=== PATIENT | male | born 1995 | race Caucasian/White ===

== ENCOUNTER 2019-12-11 17:34 | Emergency (ER) | payer OTHER ==
--- NOTE | 2019-12-11 17:41 | PDOC ---
Rapid Medical Evaluation Chief Complaint: Chest Pain Time Seen by Provider: 12/11/19 17:36 Medical Evaluation: 12/11/19 17:36 I have performed a brief in-person evaluation of this patient. CC: seizures x2 over 2 days. Not on meds. seen at OSH for same. Referred by PMD for evaluation of depression. Last ETOH/cocaine/THC 1 month ago. PE: Slow to respond to questions. Denies AH/VH/HI/SI/PI. Orders: defer to ED provider Patient will proceed to ED for further evaluation. Discharge Disposition - Diagnosis Seizure - Referrals - Patient Instructions - Post Discharge Activity
[2019-12-11 17:42] VITALS: BP 143/75; PULSE 69; TEMP 98; BMI 26.6
--- NOTE | 2019-12-11 18:28 | PDOC ---
History of Present Illness - General Chief Complaint: Chest Pain Stated Complaint: CHEST PAIN Time Seen by Provider: 12/11/19 17:36 History Source: Patient, Parent(s) - History of Present Illness Timing/Duration: other Past History - Medical History Allergies/Adverse Reactions: Allergies Allergy/AdvReac Type Severity Reaction Status Date / Time No Known Allergies Allergy Verified 12/11/19 17:42 Asthma: Yes COPD: No Seizures: Yes - Psycho-Social/Smoking History Smoking History: Never smoked - Substance Abuse Hx (Audit-C & DAST Scrn) In the last yr the pt used illegal drug/Rx for NonMed reason: Yes Score: Yes response is considered Positive: 1 Screen Result (Positive result requires Nsg. DAST-10): Positive Review of Systems - Review of Systems Constitutional: No: Chills, Fever Respiratory: Yes: Shortness of Breath Cardiac (ROS): Yes: Chest Pain Psychiatric: Yes: Depression *Physical Exam - Vital Signs Last Vital Signs Temp Pulse Resp BP Pulse Ox 98 F 69 18 143/75 99 12/11/19 17:36 12/11/19 17:36 12/11/19 17:36 12/11/19 17:36 12/11/19 17:36 - Physical Exam General Appearance: Yes: Appropriately Dressed. No: Apparent Distress HEENT: positive: Normal Voice Neck: positive: Supple Respiratory/Chest: positive: Lungs Clear, Normal Breath Sounds. negative: Respiratory Distress Cardiovascular: positive: Regular Rate, S1, S2 Gastrointestinal/Abdominal: positive: Soft. negative: Tender Integumentary: positive: Dry, Warm Neurologic: positive: gauge inspector II-XII NML intact, Fully Oriented, Alert, Other (flat affect) Medical Decision Making - Medical Decision Making 12/11/19 18:18 23 yo M, BIB father for evaluation. Per father, pt has a h/o ETOH abuse but stopped drinking 1 month ago. Also smokes marijuana up until 1 month ago. States for the past week, pt has had ? seizures witnessed by father. Pt describes the 2 episodes as feeling suddenly SOB w/ CP and then developing tingling in both arms but never loses consciousness and remains aware during entire episodes. No tongue biting or incontinence. Seen at [facility] 2 days ago w/ neg w/u extensively in ED per father. Father states he took pt to see his doctor in [place] who referred pt back to ED for unclear reasons. Pt reports feeling well now but admits to possible depression and states he feels that t life has no meaning. Does report being able to enjoy things. No SI or HI. Per father, there is sig fmhx of ETOH abuse. Pt currently not working or in school. Pt's mother passed remotely and pt was living w/ an aunt in until pt recently moved in with father see exam Substance abuse w/ possible depression and ? anxiety, unlikely seizure per hx Last ETOH intake ~1 month ago Neg med w/u in [facility] 2 days ago No SI/HI currently No case investigator/SW available for ED today Dc in care of father to f/u with Behavioral Health at [facility] as pt currently has no insurance To return as needed Discharge - Discharge Information Problems reviewed: Yes Clinical Impression/Diagnosis: Anxiety, Substance abuse Condition: Stable Disposition: HOME - Follow up/Referral - Patient Discharge Instructions Patient Printed Discharge Instructions: DI for Anxiety -- Adult, Depression, Substance Use Disorder Additional Instructions: You were referred to [facility] located at: [place] [address] Medical: And they have the following services: [facility], including licensed social workers, psychiatrists, psychiatric nurse practitioners, and primary care providers, work with our patients to make sure that every part of their health is taken care of. Our care team gets to know our patients individual health needs, learn about their health history, keeps track of any medications they are taking, and works with them to create a personal care plan. Mental health assessments Individual and group therapy Family counseling Medication management and education Addiction recovery Medication assisted treatment (MAT) for opioid use disorder Crisis intervention Discharge planning Care coordination Referrals to specialists They do see patients without insurance but may charge small sliding scale fee. The less you make, the less you pay Please return to ED immediately if you become suicidal as discussed today - Post Discharge Activity
== END 2019-12-11 18:57 | disposition home or self-care (01) ==
LOC: JER 17:34
DX: F41.9 Anxiety disorder, unspecified (principal); F19.10 Other psychoactive substance abuse, uncomplicated
CPT/HCPCS: 99283-25

== ENCOUNTER 2024-05-23 16:12 | Emergency (ER) | payer OTHER ==
[2024-05-23 16:39] VITALS: BP 133/75; PULSE 79; RESP 16; TEMP 98.8; BMI 29.3
[2024-05-23 18:29] LABS: URINE APPEARANCE CLEAR; URINE BILIRUBIN NEGATIVE (NEGATIVE); URINE COLOR YELLOW; URINE GLUCOSE (UA) NEGATIVE (NEGATIVE); URINE KETONE 2+ (NEGATIVE); URINE LEUK ESTERASE NEGATIVE (NEGATIVE); URINE NITRITE NEGATIVE (NEGATIVE); URINE PROTEIN NEGATIVE (NEGATIVE); URINE UROBILINOGEN 0.2 mg/dL (0.2-1.0)
[2024-05-23 19:41] LABS: HIV INTERPRETATION NEGATIVE (NEGATIVE)
== END 2024-05-23 19:02 | disposition home or self-care (01) ==
LOC: JER 16:12
DX: F41.9 Anxiety disorder, unspecified (principal); K59.00 Constipation, unspecified; R06.02 Shortness of breath; R00.2 Palpitations; R29.898 Other symptoms and signs involving the musculoskeletal system
CPT/HCPCS: 36415; 81003; 86695; 86696; 86705; 86709; 86780; 87086; 87350; 87389; 87491; 87591; 87902; 99283-25